=== PATIENT | male | born 1990 | race Asian ===

== ENCOUNTER 2019-10-19 11:18 | Emergency (ER) | payer OTHER ==
[~2019-10-19] VITALS: Ht 167.6 cm; Wt 72.6 kg
[2019-10-19 11:32] VITALS: BP 134/81
[2019-10-19] MEDS ORDERED: IBUPROFEN 600 MG TABLET PO ONE ×2 (12:00→12:06)
--- NOTE | 2019-10-19 12:13 | NUR ---
COVID 19 TESTING DONE & SENT TO LAB.
== END 2019-10-19 12:25 | disposition home or self-care (01) ==
LOC: ER 11:18
DX: R52 Pain, unspecified (principal); R06.02 Shortness of breath; R50.9 Fever, unspecified; Z20.828 Contact with and (suspected) exposure to other viral communicable diseases
CPT/HCPCS: 71045; 99284; C9803; U0003